=== PATIENT | female | born 1960 | race Caucasian/White ===

== ENCOUNTER 2017-04-02 19:26 | Inpatient (IN) | payer OTHER ==
[~2017-04-02] VITALS: Ht 157.5 cm; Wt 90.3 kg
[2017-04-02] MEDS ORDERED: ASPIRIN 81 MG TAB.CHEW ONE (19:31)
--- NOTE | 2017-04-02 19:36 | ED.ADGEN ---
Past History Past Medical History: Other Adult General Chief Complaint Chief Complaint " I ve been short of breath.. some chest pain.. I have DM.. I usually see Dr. Villalpando. " HPI HPI Patient is a 57 year old female who presents with above hx and complaints of dyspnea and Chest pain . Chest pain is central and pleuritic. . Hx. cough, and fever. Pt,. reports no specific ill contacts. No travel. No changes in meds. Pt. normally follows with Dr. Villalpando. Pt. does have hx of DM. No hx of tobacco use. No hx of cardiac disorders. Review of Systems Review of Systems Constitutional: Denies fever or chills [] Eyes: Denies change in visual acuity, redness, or eye pain [] HENT: Denies nasal congestion or sore throat [] Respiratory: Hx of cough and shortness of breath [] Cardiovascular: No additional information not addressed in HPI [] GI: Hx. of , nausea,. No vomiting, bloody stools or diarrhea [] : Denies dysuria or hematuria [] Musculoskeletal: Denies back pain or joint pain [] Integument: Denies rash or skin lesions [] Neurologic: Denies headache, focal weakness or sensory changes [] Endocrine: Denies polyuria or polydipsia [] All other systems were reviewed and found to be within normal limits, except as documented in this note. Family History Family History DM Current Medications Current Medications Current Medications Medications (Trade) Dose Ordered Sig/Anais Start Time Stop Time Status Last Admin Dose Admin Aspirin (Selene Aspirin) 325 mg 1X ONCE 04/02/17 20:45 04/02/17 20:46 AR Aspirin (Children'S Aspirin) 324 mg 1X ONCE 04/02/17 21:00 04/02/17 21:01 AR 04/02/17 19:30 324 MG Ceftriaxone Sodium 1 gm/ Sodium Chloride 50 ml @ 100 mls/hr 1X ONCE 04/02/17 21:00 04/02/17 21:29 DC 04/02/17 21:45 100 MLS/HR Enoxaparin Sodium (Lovenox 80mg Syringe) 80 mg 1X ONCE 04/02/17 21:00 04/02/17 21:01 DC 04/02/17 21:45 80 MG Info (Do NOT chart on this entry -- for MONITORING) 1 each PRN DAILY PRN 04/02/17 21:00 04/04/17 20:59 Iohexol (Omnipaque 300 Mg/ml) 75 ml 1X ONCE 04/02/17 21:30 04/02/17 21:31 DC 04/02/17 21:41 75 ML Sodium Chloride 1,000 ml @ 1,000 mls/hr Q1H 04/02/17 20:30 04/02/17 21:29 DC 04/02/17 20:36 1,000 MLS/HR Allergies Allergies Allergies Coded Allergies Type Severity Reaction Last Updated Verified No Known Drug Allergies 04/02/17 No Physical Exam Physical Exam Constitutional: Well developed, well nourished, mid to moderate distress, non- toxic appearance. [] HENT: Normocephalic, atraumatic, bilateral external ears normal, oropharynx moist, no oral exudates, nose normal. [] Eyes: PERRLA, EOMI, conjunctiva normal, no discharge. [] Neck: Normal range of motion, no tenderness, supple, no stridor. [] Cardiovascular:Tachycardia Heart rate regular rhythm, no murmur [] Lungs & Thorax: Bilateral breath sounds equal apex with scattered wheezes, some rhonchi Rt. lung ramirez on auscultation [] Abdomen: Bowel sounds normal, soft, no tenderness, no masses, no pulsatile masses. Obese. Skin: Warm, dry, no erythema, no rash. [] Back: No tenderness, no CVA tenderness. [] Extremities: No tenderness, no cyanosis, no clubbing, ROM intact, no edema. No cording. Neurologic: Alert and oriented X 3, normal motor function, normal sensory function, no focal deficits noted. [] Psychologic: Affect anxious, judgement normal, mood normal. [] Current Patient Data Lab Results Laboratory Tests Test 04/02/17 19:30 White Blood Count 7.8 x10^3/uL (4.0-11.0) Red Blood Count 4.93 x10^6/uL (3.50-5.40) Hemoglobin 14.4 g/dL (12.0-15.5) Hematocrit 41.5 % (36.0-47.0) Mean Corpuscular Volume 84 fL (79-100) Mean Corpuscular Hemoglobin 29 pg (25-35) Mean Corpuscular Hemoglobin Concent 35 g/dL (31-37) Red Cell Distribution Width 13.7 % (11.5-14.5) Platelet Count 247 x10^3/uL (140-400) Neutrophils (%) (Auto) 81 % (31-73) H Lymphocytes (%) (Auto) 12 % (24-48) L Monocytes (%) (Auto) 6 % (0-9) Eosinophils (%) (Auto) 0 % (0-3) Basophils (%) (Auto) 0 % (0-3) Neutrophils # (Auto) 6.3 x10^3uL (1.8-7.7) Lymphocytes # (Auto) 1.0 x10^3/uL (1.0-4.8) Monocytes # (Auto) 0.5 x10^3/uL (0.0-1.1) Eosinophils # (Auto) 0.0 x10^3/uL (0.0-0.7) Basophils # (Auto) 0.0 x10^3/uL (0.0-0.2) Prothrombin Time 11.2 SEC (9.4-11.4) Prothrombin Time INR 1.1 (0.9-1.1) PTT 28 SEC (23-33) D-Dimer (Anum) 1.30 mg/L (0.00-0.50) H Urine Collection Type Unknown Urine Color Straw Urine Clarity Clear Urine pH 5.0 Urine Specific [place] 1.025 Urine Protein 100 mg/dl (NEG-TRACE) Urine Glucose (UA) Neg mg/dL (NEG) Urine Ketones (Stick) Trace mg/dL (NEG) Urine Blood Mod (NEG) Urine Nitrite Neg (NEG) Urine Bilirubin Small (NEG) Urine Urobilinogen Dipstick 1 mg/dL (0.2 mg/dL) Urine Leukocyte Esterase Small (NEG) Urine RBC 1-2 /HPF (0-2) Urine WBC 1-4 /HPF (0-4) Urine Squamous Epithelial Cells Occ /LPF Urine Bacteria 0 /HPF (0-FEW) Sodium Level 135 mmol/L (136-145) L Potassium Level 3.7 mmol/L (3.5-5.1) Chloride Level 99 mmol/L (98-107) Carbon Dioxide Level 20 mmol/L (21-32) L Anion Gap 16 (6-14) H Blood Urea Nitrogen 19 mg/dL (7-20) Creatinine 1.0 mg/dL (0.6-1.0) Estimated GFR (Cockcroft-Gault) 57.6 BUN/Creatinine Ratio 19 (6-20) Glucose Level 196 mg/dL (70-99) H Calcium Level 8.4 mg/dL (8.5-10.1) L Magnesium Level 1.9 mg/dL (1.8-2.4) Total Bilirubin 0.7 mg/dL (0.2-1.0) Aspartate Amino Transferase (AST) 31 U/L (15-37) Alanine Aminotransferase (ALT) 31 U/L (14-59) Alkaline Phosphatase 89 U/L (46-116) Creatine Kinase 254 U/L (26-192) H Creatine Kinase MB (Mass) 1.3 ng/mL (0.0-3.6) Creatine Kinase MB Relative Index 0.5 % (0-4) Troponin I Quantitative < 0.017 ng/mL (0-0.055) GV-Man-K-Type Natriuretic Peptide 30 pg/mL (0-124) Total Protein 7.3 g/dL (6.4-8.2) Albumin 3.2 g/dL (3.4-5.0) L Albumin/Globulin Ratio 0.8 (1.0-1.7) L Lipase 93 U/L (73-393) Urine Opiates Screen Neg (NEG) Urine Methadone Screen Neg (NEG) Urine Barbiturates Neg (NEG) Urine Phencyclidine Screen Neg (NEG) Urine Amphetamine/Methamphetamine Neg (NEG) Urine Benzodiazepines Screen Neg (NEG) Urine Cocaine Screen Neg (NEG) Urine Cannabinoids Screen Neg (NEG) Urine Ethyl Alcohol Neg (NEG) EKG EKG My interpretation of EKG shows sinus 98, Lt. axis, non-specific anterolateral changes. [] Radiology/Procedures Radiology/Procedures My interpretation of CXR shows R. M. Lobe infiltrate, adenopathy. CT - Chest pending at time of admit. [] Course & Med Decision Making Course & Med Decision Making Pertinent Labs and Imaging studies reviewed. (See chart for details) Discussed presentation, testing and tx. plan with Dr. Villalpando. - Admit [] Final Impression Final Impression 1. Chest Pain[] 2. DM 3. Elevated D-dimer 4. Adenopathy 5. Dyspnea 6. Rt. Middle Lobe Infiltrate Problems: Dragon Disclaimer Dragon Disclaimer This electronic medical record was generated, in whole or in part, using a voice recognition dictation system. SURY BEDOLLA MD Apr 02, 2017 19:35
[2017-04-02 20:05] LABS: BASO % 0 % (0-3); EOS % 0 % (0-3); HEMATOCRIT 41.5 % (36.0-47.0); HEMOGLOBIN 14.4 g/dL (12.0-15.5); LYMPH % 12 % (24-48); MEAN CORPUSCULAR HEMOGLOBIN 29 pg (25-35); MEAN CORPUSCULAR HGB CONC 35 g/dL (31-37); MEAN CORPUSCULAR VOLUME 84 fL (79-100); MONO # 0.5 x10^3/uL (0.0-1.1); MONO % 6 % (0-9); NEUT # 6.3 x10^3uL (1.8-7.7); NEUT % 81 % (31-73); PLATELET COUNT 247 x10^3/uL (140-400); RED BLOOD COUNT 4.93 x10^6/uL (3.50-5.40); RED CELL DISTRIBUTION WIDTH 13.7 % (11.5-14.5); WHITE BLOOD COUNT 7.8 x10^3/uL (4.0-11.0)
--- NOTE | 2017-04-02 20:25 | RAD ---
EXAM: Chest, 2 views. HISTORY: Chest pain. Cough. COMPARISON: None. FINDINGS: Frontal and lateral views of the chest are obtained. There is patchy right perihilar and infrahilar infiltrate. There is no effusion or pneumothorax. The heart is normal in size. IMPRESSION: Multifocal right perihilar infiltrate. Follow-up to confirm resolution. Electronically signed by: Bridget Bee MD (04/02/2017 8:21 PM) [facility]
[2017-04-02 20:30] LABS: ALBUMIN 3.2 g/dL (3.4-5.0); ALBUMIN/GLOBULIN RATIO 0.8 (1.0-1.7); CALCIUM 8.4 mg/dL (8.5-10.1); GFR 57.6; MAGNESIUM 1.9 mg/dL (1.8-2.4); POTASSIUM 3.7 mmol/L (3.5-5.1); TOTAL BILIRUBIN 0.7 mg/dL (0.2-1.0); TOTAL PROTEIN 7.3 g/dL (6.4-8.2)
[2017-04-02] MEDS ORDERED: IV NORMAL SALINE 1,000ML 1,000 ML IV SCH (20:30)
[2017-04-02 20:35] LABS: BACTERIA,URINE 0 /HPF (0-FEW); BILIRUBIN,URINE SMALL (NEG); CLARITY,URINE CLEAR; COLOR,URINE STRAW; GLUCOSE,URINE NEG (NEG); NITRITE,URINE NEG (NEG); SQUAMOUS EPITHELIAL CELL,UR OCC /LPF; UROBILINOGEN,URINE 1 mg/dL (0.2 mg/dL)
[2017-04-02 20:36] LABS: BARBITURATES NEG (NEG); BENZODIAZEPINES NEG (NEG); CANNABINOIDS NEG (NEG); COCAINE NEG (NEG); METHADONE NEG (NEG); OPIATES NEG (NEG); PHENCYCLIDINE NEG (NEG)
[2017-04-02 20:37] LABS: AMPHETAMINE/METHAMPHETAMINE NEG (NEG)
[2017-04-02] MEDS ORDERED: ASPIRIN 325 MG TABLET PO ONE (20:45)
--- NOTE | 2017-04-02 20:48 | EKG ---
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
[2017-04-02] MEDS ORDERED: ASPIRIN 81 MG TAB.CHEW PO ONE (21:00)
[2017-04-02] MEDS ORDERED: CONTRAST GIVEN MC PRN (21:00)
[2017-04-02] MEDS ORDERED: ENOXAPARIN ** NOTE DOSE ** SYRINGE SQ ONE (21:00)
[2017-04-02] MEDS ORDERED: IV NORMAL SALINE 50ML 50 ML ONE (21:17)
[2017-04-02] MEDS ORDERED: cefTRIAXone SODIUM 1 GM VIAL IV ONE (21:17)
[2017-04-02] MEDS ORDERED: IOHEXOL 300 MG/ML 75 ML VIAL. IV ONE (21:30)
[2017-04-02 21:45] VITALS: BP 118/72
--- NOTE | 2017-04-02 22:01 | RAD ---
Chest CTA History: Elevated d-dimer, infiltrate Technique: After bolus of intravenous contrast, CT imaging was performed of the chest. Multiplanar reconstruction images to include MIP reconstruction images are submitted. Exposure: One or more of the following individualized dose reduction techniques were utilized for this examination: 1. Automated exposure control 2. Adjustment of the mA and/or kV according to patient size 3. Use of iterative reconstruction technique. Contrast: 75 cc Omnipaque 300 Comparison: None Findings: [ ] No pulmonary embolism is identified. There is prominent infiltrate right middle lobe, to lesser degree of the right lower lobe. There is no abnormal pericardial or pleural fluid or pneumothorax. Major airways are patent. There is borderline enlarged node anterior to the right mainstem bronchus at 1 cm short axis dimension, some other mediastinal and right hilar nodes present. Impression: 1. No pulmonary embolism is identified. 2. There is prominent infiltrate of the right middle lobe and to lesser degree of the right lower lobe for which follow-up after treatment is advised. There is borderline mediastinal lymphadenopathy. Electronically signed by: Manpreet Oconnell MD (04/02/2017 9:57 PM) [employer]
[2017-04-02] MEDS ORDERED: Influenza vaccine per PROTOCOL. MC PRN (23:15)
[2017-04-02] MEDS ORDERED: PNEUMOCOCCAL VAX SCREEN. MC PRN (23:15)
[2017-04-02] MEDS ORDERED: ANTI-COAG MONITOR BY PHARMACY. MC PRN (23:15)
[2017-04-02] MEDS ORDERED: PITA2TAB2 PO (23:26)
[2017-04-02] MEDS ORDERED: METF500T4 PO (23:26)
[2017-04-02] MEDS ORDERED: CYCL-331 PO (23:28)
[2017-04-02] MEDS ORDERED: AZITHROMYCIN 250 MG TABLET. PO ONE (23:30)
[2017-04-03] MEDS ORDERED: ACETAMINOPHEN 325 MG TABLET PO ONE (05:21)
[2017-04-03 05:25] VITALS: BP 113/68
[2017-04-03] MEDS ORDERED: ACETAMINOPHEN 500 MG TABLET PO PRN (05:30)
[2017-04-03] MEDS ORDERED: IPRATRPIUM/ALBUTEROL 0.5/2.5MG 3 ML NEBU. ONE ×2 (05:47→05:53)
[2017-04-03] MEDS: IPRATRPIUM/ALBUTEROL 0.5/2.5MG 3 ML NEBU. NEB SCH ×4 (05:49→21:49)
[2017-04-03] MEDS ORDERED: DEXTROSE 50% 25 GM / 50ML DISP.SYRIN. IV PRN (06:00)
[2017-04-03] MEDS: ENOXAPARIN ** NOTE DOSE ** SYRINGE SQ SCH ×2 (07:54→21:13)
[2017-04-03] MEDS ORDERED: AZITHROMYCIN 250 MG TABLET. PO SCH (09:00)
[2017-04-03] MEDS ORDERED: FLU VACC QS2017-18 (36MOS+)/PF 0.5 ML SYRINGE. VAX IM ONE (09:00)
[2017-04-03] MEDS ORDERED: PNEUMOC CONJ VACC 23-VALENT 0.5 ML VIAL. VAX IM ONE (09:00)
--- NOTE | 2017-04-03 09:54 | RAD ---
Bilateral lower extremity venous Doppler ultrasound exam HISTORY:Elevated d-dimer COMPARISON: None FINDINGS: Multiple grayscale and color images and spectral analysis waveform images were acquired of the bilateral lower extremity veins to evaluate for the presence of DVT. Normal compression, color-flow, and augmentation is demonstrated from the bilateral common femoral to the popliteal veins. There is normal phasicity. There is normal color flow of the proximal profunda femoris and greater saphenous veins. There is normal color flow in segments of calf veins. Impression: 1. There is no evidence of deep venous thrombosis from the bilateral common femoral to popliteal veins.
[2017-04-03 11:11] VITALS: BP 138/71
[2017-04-03 13:08] VITALS: BP 160/74
[2017-04-03] MEDS ORDERED: NITROGLYCERIN SUBLINGUAL 0.4 MG BOTTLE OF 25. SL PRN (13:30)
[2017-04-03] MEDS ORDERED: METOPROLOL SUCC 24HR ER 25 MG TAB.ER.24H. PO ONE (13:30)
--- NOTE | 2017-04-03 14:05 | HP ---
ADMIT DATE: 04/03/2017 HISTORY OF PRESENT ILLNESS: A 57-year-old female came in through the Emergency Room not feeling well for the last 3-4 days prior to admission. The patient has been having chest pain and sent from pleuritic cough, fever, chills. The patient has a history of diabetes. In any case, the patient was admitted to the hospital for further evaluation and treatment for her pneumonia that was demonstrated a first on chest x-ray and then on a CTA that demonstrated prominent infiltrate of the right middle lobe to a lesser degree of the right lower lobe, so she has bilobar pneumonia. The patient otherwise was admitted for that situation at hand. PAST MEDICAL HISTORY: Hypertension and back pain. She has had a history of anemia and arthritis. ALLERGIES: Possibly to METFORMIN. MEDICATIONS: Livalo 2 mg daily, metformin 850 mg b.i.d., which is contradictory to the metformin, which is was only there for side effects. FAMILY HISTORY: Father with Parkinson's. Mother with diabetes. Aunt with cancer. SOCIAL HISTORY: The patient is a nonsmoker, denies alcohol or drug use. 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 PHYSICAL EXAMINATION: GENERAL: A pleasant white female, moderate amount of distress. VITAL SIGNS: The patient's temperature was up to 99.9, pulse was n the 90s, blood pressure 138/70, respiratory rate 22. The patient is on 2 liters of nasal cannula. NEUROLOGIC: Alert and oriented x 3. Speech fluent, spontaneous, appropriate. Cranial nerves 2-12 grossly intact. Eyes were PERRLA. HEENT: Mouth and throat: Normal. Poor dentition. NECK: Supple, without JVD, carotid thyromegaly. LUNGS: Diminished throughout, poor movement of air. CARDIOVASCULAR: Regular sinus rhythm, S1, S2, without murmur, rub, thrill, or extra heart sound. ABDOMEN: Soft, nontender, no rebounding, no guarding. Positive bowel sounds, no hepatosplenomegaly was noted. EXTREMITIES: Without clubbing, cyanosis nor edema. NEUROLOGIC: The patient was alert and oriented x 3. IMPRESSION: Pneumonia, community acquired, bilobar pneumonia. PLAN: We will go ahead and continue to monitor the patient on IV antibiotic therapy. We will step up the dosing on the antibiotic since she did not respond well to the previous IV antibiotics. We will put her on cefepime and Levaquin and see if this does give the patient better relief as she is having still problems with breathing and not feeling very well and still running temperature. DAKSHA SIERRA MD DR: RADHA/jaimie JOB#: [id number] / [id number]
[2017-04-03] MEDS: CEFEPIME HCL 1 GM in IV NORMAL SALINE 50ML 50 ML IV SCH ×2 (14:22→21:14)
[2017-04-03] MEDS: ACETAMINOPHEN 500 MG TABLET PO PRN (15:11)
[2017-04-03] MEDS ORDERED: diphenhydrAMINE 50 MG/ML VIAL IVP ONE (15:15)
[2017-04-03] MEDS ORDERED: methylPREDNISolone SOD SUCC PF 125 MG/2 ML VIAL. IV ONE (15:15)
[2017-04-03 15:26] VITALS: BP 128/74
[2017-04-03 18:21] VITALS: BP 129/76
[2017-04-03] MEDS: diphenhydrAMINE 50 MG/ML VIAL IVP PRN (21:13)
[2017-04-03] MEDS: ZOLPIDEM 5 MG TABLET. PO PRN (21:21)
[2017-04-03 22:26] VITALS: BP 138/80
[2017-04-03] MEDS ORDERED: methylPREDNISolone SOD SUCC PF 40 MG/ML VIAL. IV ONE (23:00)
[2017-04-04] MEDS: CEFEPIME HCL 1 GM in IV NORMAL SALINE 50ML 50 ML IV SCH (05:07)
[2017-04-04 05:20] VITALS: BP 134/69
[2017-04-04] MEDS: IPRATRPIUM/ALBUTEROL 0.5/2.5MG 3 ML NEBU. NEB SCH ×4 (05:46→21:49)
[2017-04-04 06:35] LABS: BASO % 0 % (0-3); EOS % 0 % (0-3); HEMATOCRIT 37.9 % (36.0-47.0); HEMOGLOBIN 13.2 g/dL (12.0-15.5); LYMPH # 0.9 x10^3/uL (1.0-4.8); LYMPH % 15 % (24-48); MEAN CORPUSCULAR HEMOGLOBIN 29 pg (25-35); MEAN CORPUSCULAR HGB CONC 35 g/dL (31-37); MEAN CORPUSCULAR VOLUME 84 fL (79-100); MONO # 0.1 x10^3/uL (0.0-1.1); MONO % 2 % (0-9); NEUT # 4.6 x10^3uL (1.8-7.7); NEUT % 83 % (31-73); PLATELET COUNT 266 x10^3/uL (140-400); RED BLOOD COUNT 4.53 x10^6/uL (3.50-5.40); RED CELL DISTRIBUTION WIDTH 13.9 % (11.5-14.5); WHITE BLOOD COUNT 5.6 x10^3/uL (4.0-11.0)
[2017-04-04 06:43] LABS: CALCIUM 8.7 mg/dL (8.5-10.1); CREATININE 0.7 mg/dL (0.6-1.0); GFR 86.9; POTASSIUM 3.3 mmol/L (3.5-5.1)
[2017-04-04] MEDS: ATORVASTATIN CALCIUM 10 MG TABLET. PO SCH (08:47)
[2017-04-04] MEDS: ASPIRIN ENTERIC COATED 81 MG TABLET.DR. PO SCH (08:47)
[2017-04-04] MEDS: ENOXAPARIN ** NOTE DOSE ** SYRINGE SQ SCH (08:52)
[2017-04-04 10:51] VITALS: BP 170/68
[2017-04-04] MEDS ORDERED: DEXTROSE 50% 25 GM / 50ML DISP.SYRIN. IV PRN (11:45)
--- NOTE | 2017-04-04 12:25 | EKG ---
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
[2017-04-04] MEDS: INSULIN ASPART 300 UNITS/3 ML INSULN.PEN SQ SCH ×3 (12:32→21:16)
[2017-04-04] MEDS: CEFEPIME HCL 2 GM in IV NORMAL SALINE 100ML 100 ML IV SCH ×2 (14:13→21:10)
[2017-04-04 15:29] VITALS: BP 124/80
[2017-04-04 19:35] VITALS: BP 118/69
[2017-04-04] MEDS: diphenhydrAMINE 50 MG/ML VIAL IVP PRN (21:12)
[2017-04-04] MEDS: CYCLOBENZAPRINE 10 MG TABLET. PO PRN (21:12)
[2017-04-04] MEDS: ACETAMINOPHEN 500 MG TABLET PO PRN (21:12)
[2017-04-04] MEDS: ZOLPIDEM 5 MG TABLET. PO PRN (21:12)
[2017-04-04] MEDS: LACTOBACILLUS RHAMNOSUS GG 1 CAPSULE. PO SCH (21:13)
[2017-04-05] MEDS: CEFEPIME HCL 2 GM in IV NORMAL SALINE 100ML 100 ML IV SCH ×3 (04:40→21:05)
[2017-04-05 04:46] VITALS: BP 151/83
[2017-04-05] MEDS: IPRATRPIUM/ALBUTEROL 0.5/2.5MG 3 ML NEBU. NEB SCH ×4 (05:35→20:53)
[2017-04-05] MEDS: INSULIN ASPART 300 UNITS/3 ML INSULN.PEN SQ SCH ×4 (07:30→20:37)
[2017-04-05] MEDS: ASPIRIN ENTERIC COATED 81 MG TABLET.DR. PO SCH (07:50)
[2017-04-05] MEDS: metFORMIN 500 MG TABLET PO SCH ×2 (07:50→17:00)
[2017-04-05] MEDS: ATORVASTATIN CALCIUM 10 MG TABLET. PO SCH (07:50)
[2017-04-05] MEDS: LACTOBACILLUS RHAMNOSUS GG 1 CAPSULE. PO SCH ×2 (07:50→21:05)
[2017-04-05] MEDS: ENOXAPARIN 40 MG/0.4 ML DISP.SYRIN. SQ SCH (07:53)
[2017-04-05 11:00] VITALS: BP 129/70
--- NOTE | 2017-04-05 13:47 | RAD ---
Nuclear medicine lung scan Indication: Dyspnea for one week. Technique: Planar ventilation images are performed after inhalation of 24 mCi of xenon-133. Perfusion images are obtained after administration of 5.5 mCi of technetium 99m MAA in multiple projections. Comparison: CT angiogram from 04/02/2017 and same day chest x-ray Findings: The ventilation images demonstrate homogeneous uptake of the xenon-133 with complete washout on delayed images. The perfusion images demonstrate no abnormal wedge-shaped perfusion defects. There is a photopenic area seen on the RPO view that corresponds to pulmonary consolidation seen on the CT. Impression: Low probably VQ scan. Please note that previous CT angiogram from 04/02/2017 was negative for PE.
--- NOTE | 2017-04-05 14:07 | RAD ---
Chest, 2 views, 04/05/2017: History: Follow-up pneumonia Comparison is made to a study from 04/02/2017. The heart is within normal limits in size. There are right lung infiltrates involving primarily the right middle lobe. Similar findings were present on the previous study. The left lung is clear. There is no evidence of pleural fluid. Moderate spurring is present in the spine. IMPRESSION: Unchanged right pulmonary infiltrates again suggesting pneumonia.
--- NOTE | 2017-04-05 14:46 | PN ---
DATE: 04/03/2017 SUBJECTIVE: A 57-year-old female in with pneumonia, sepsis. The patient had a reaction to her Levaquin this morning and as a result of this had difficulty with severe rash the dose of Benadryl and Solu-Medrol, this took care of that. PHYSICAL EXAMINATION: VITAL SIGNS: Her blood pressure came down from 170 to 120/70, respiratory rate 20, pulse 88, afebrile. GENERAL: The patient is alert and oriented. LUNGS: Diminished throughout, but clearer than they have been. CARDIOVASCULAR: Regular sinus rhythm, S1, S2. ABDOMEN: Soft, nontender. LABORATORY DATA: Blood sugars are Solu-Medrol to the reaction to the Levaquin itself. Otherwise, labs are basically stable. She did have a positive blood culture, possible staph. The patient was placed on the cefepime and increased to 2 grams IV q. 8 since we had taken her off the Levaquin. She continues on her Lovenox and continues to be monitored carefully. We will continue to monitor, give her breathing treatments make further evaluation. IMPRESSION: Sepsis, pneumonia of unspecified etiology; allergic reaction to Levaquin. DAKSHA SIERRA MD DR: RADHA/jaimie JOB#: [id number] / [id number]
[2017-04-05 15:00] VITALS: BP 155/72
[2017-04-05 19:42] VITALS: BP 145/89
[2017-04-05] MEDS: CYCLOBENZAPRINE 10 MG TABLET. PO PRN (21:05)
[2017-04-05] MEDS: ZOLPIDEM 5 MG TABLET. PO PRN (21:06)
[2017-04-05 21:47] VITALS: BP 129/73
--- NOTE | 2017-04-06 00:33 | PN ---
DATE: SUBJECTIVE: This is a 57-year-old female in with pneumonia. She is doing a little better, but still very weak on her legs, having difficulty standing and walking. She will continue with PT, OT, and make further advances on that today. Should have repeat chest x-ray and monitor the progression of her pneumonia. OBJECTIVE: VITAL SIGNS: Otherwise, blood pressure 130/70, respirations 18, pulse 60, afebrile. Did run a little bit of a temperature last night, so we will continue on IV antibiotic therapy. LUNGS: Diminished throughout, but clearer than they have been. CARDIOVASCULAR: Regular sinus rhythm. ABDOMEN: Soft, nontender. EXTREMITIES: No clubbing, cyanosis, or edema. NEUROLOGICAL: The patient neurologically stable and feeling a little better, but still very weak. We will continue with IV antibiotic therapy and make further evaluation on her as indicated. IMPRESSION: Pneumonia of unspecified etiology, sepsis. ____ the patient will get a VQ scan today ____ positive D-dimer and will make further evaluation on her once that result is back. Otherwise, we will decrease her antibiotic to 1 gram 3 times a day. Get chest x-ray and make further evaluation on her as indicated per those results. DAKSHA SIERRA MD DR: RADHA/jaimie JOB#: [id number] / [id number]
[2017-04-06] MEDS: IPRATRPIUM/ALBUTEROL 0.5/2.5MG 3 ML NEBU. NEB SCH ×2 (05:30→09:19)
[2017-04-06] MEDS: CEFEPIME HCL 2 GM in IV NORMAL SALINE 100ML 100 ML IV SCH (05:45)
[2017-04-06 05:46] VITALS: BP 124/66
[2017-04-06 06:49] LABS: BASO % 0 % (0-3); EOS # 0.1 x10^3/uL (0.0-0.7); EOS % 2 % (0-3); HEMOGLOBIN 12.2 g/dL (12.0-15.5); LYMPH # 2.5 x10^3/uL (1.0-4.8); LYMPH % 36 % (24-48); MEAN CORPUSCULAR HEMOGLOBIN 29 pg (25-35); MEAN CORPUSCULAR HGB CONC 35 g/dL (31-37); MEAN CORPUSCULAR VOLUME 84 fL (79-100); MONO # 0.4 x10^3/uL (0.0-1.1); MONO % 5 % (0-9); NEUT # 3.9 x10^3uL (1.8-7.7); NEUT % 57 % (31-73); PLATELET COUNT 289 x10^3/uL (140-400); RED BLOOD COUNT 4.17 x10^6/uL (3.50-5.40); WHITE BLOOD COUNT 6.9 x10^3/uL (4.0-11.0)
[2017-04-06 06:58] LABS: CALCIUM 7.6 mg/dL (8.5-10.1); CREATININE 0.8 mg/dL (0.6-1.0); GFR 74.5; POTASSIUM 3.1 mmol/L (3.5-5.1)
[2017-04-06] MEDS: INSULIN ASPART 300 UNITS/3 ML INSULN.PEN SQ SCH ×2 (07:30→11:30)
[2017-04-06] MEDS: metFORMIN 500 MG TABLET PO SCH (08:28)
[2017-04-06] MEDS: ATORVASTATIN CALCIUM 10 MG TABLET. PO SCH (08:28)
[2017-04-06] MEDS: LACTOBACILLUS RHAMNOSUS GG 1 CAPSULE. PO SCH (08:28)
[2017-04-06] MEDS: ASPIRIN ENTERIC COATED 81 MG TABLET.DR. PO SCH (08:28)
[2017-04-06] MEDS: ENOXAPARIN 40 MG/0.4 ML DISP.SYRIN. SQ SCH (08:29)
[2017-04-06] MEDS ORDERED: IPRA3AMP NEB (10:37)
[2017-04-06] MEDS ORDERED: CEFU500T46 PO (10:37)
[2017-04-06 10:48] VITALS: BP 124/76
--- NOTE | 2017-04-06 20:57 | DS ---
DATE OF DISCHARGE: 04/06/2017 A 57-year-old female came in feeling weak and tired, running fever and chills for several days prior to admission. The patient apparently was a smoker and also has a history of diabetes. The patient came in and was found prominent infiltrate in the right middle lobe to a lesser degree to the right lower lobe. As a result of this, the patient was admitted to the hospital for further evaluation for IV antibiotic therapy, positive D-dimer. CTA demonstrated pneumonia, but no blood clots. She had a chest x-ray and lower extremities showed no evidence of situation there. The patient's pulmonary perfusion test was negative and chest x-ray last one did show some unchanged right pulmonary infiltrate, although clinically she does not have any signs of infection. She is perfectly afebrile. Her heart rate is in the 80s. Her oxygen saturation is at 94-95% just on room air, so we will continue on oral antibiotics as an outpatient. She was encouraged not to smoke. Decreased activity. Continue with her MRAD to make further evaluation on her as indicated. The patient's final blood cultures did show possible Staph epidermidis, which would have been a contaminate in her blood specimens, but she will be kept on Ceftin, but again this is no doubt probably a contaminate. She also had a bad reaction to Levaquin that needs to be put into her database as a reaction there. The patient's urine cultures were negative. See MRAD, decreased activity, regular diet, off of work for another 4-5 days. Continue on oral antibiotic therapy and return to clinic for followup as indicated. DAKSHA SIERRA MD DR: RADHA/jaimie JOB#: [id number] / [id number]
== END 2017-04-06 13:00 | disposition home or self-care (01) | DRG 871 ==
LOC: ER 19:26 → 1 SOUTH 21:00
PROVIDERS: ADMIT Family Medicine; ATTEND Family Medicine
DX: A41.9 Sepsis, unspecified organism (principal); J18.1 Lobar pneumonia, unspecified organism; E11.9 Type 2 diabetes mellitus without complications; I10 Essential (primary) hypertension; T37.8X5A Adverse effect of other specified systemic anti-infectives and antiparasitics, initial encounter; Z82.0 Family history of epilepsy and other diseases of the nervous system; Z83.3 Family history of diabetes mellitus; M19.90 Unspecified osteoarthritis, unspecified site; M54.9 Dorsalgia, unspecified; R59.9 Enlarged lymph nodes, unspecified; Z86.2 Personal history of diseases of the blood and blood-forming organs and certain disorders involving the immune mechanism
CPT/HCPCS: 36415; 71020; 71275; 78582; 80048; 80053; 80307; 81001; 82550; 82553; 82947; 83605; 83690; 83735; 83880; 84443; 84484; 85025; 85379; 85610; 85730; 87040; 87086; 87205; 90686; 90732; 93005; 93970; 94640; 96374; A9540; A9558; G0238; J0456; J0692; J0696; J1200; J1650; J1815; J1956; J2920; J2930; J7620; Q9967; G0479; J7030

== ENCOUNTER 2019-12-27 07:25 | Emergency (ER) | payer SELFPAY ==
[~2019-12-27] VITALS: Ht 157.5 cm; Wt 87.8 kg
[~2019-12-27 07:25] MED LIST: CEFU500T46 PO; CYCL-331 PO; IPRA3AMP29 NEB; METF500T16 PO; PITA2TAB2 PO
[2019-12-27 07:41] VITALS: BP 132/57
[2019-12-27] MEDS ORDERED: ORPH-16 PO (08:13)
[2019-12-27] MEDS ORDERED: NAPR-695 PO (08:13)
--- NOTE | 2019-12-27 08:13 | PHYS DOC ---
Past History Past Medical History: No Pertinent History Past Surgical History: No Surgical History Smoking: Non-smoker Alcohol Use: None Drug Use: None General Adult EDM: Chief Complaint: SHOUDLER HPI: HPI: 59-year-old female presents the emergency department for left shoulder pain that began last night at around midnight after pushing away her dog. She heard a "pop" in her left shoulder when she pushed her dog away. She states that from this point she has had excruciating pain which she ranks on a scale of 20/10 and the pain has not been relieved in any way. She has no previous shoulder injuries or shoulder surgeries to the shoulder. She did state that she had a doctor once tell her that she had "arthritis" in the left shoulder. Before this morning she had no previous restriction of motion or pain at baseline. She describes the pain as achy and occasionally sharp. She also has pain in her left elbow as well. She says the pain is most painful with palpation in her left deltoid area and at the left elbow. She states that the pain does occasionally radiate to her elbow from her shoulder. She has no loss of sensation and any part of her upper left extremity. She denies numbing or tingling of her left upper extremity. She has not taken any pain medications for pain relief. She was brought to the emergency department by her fianc. She denies any previous recent COVID-19 contacts. Review of Systems: Review of Systems: Constitutional: Denies fever or chills Eyes: Denies redness or eye pain HENT: Denies nasal congestion or sore throat Respiratory: Denies cough or shortness of breath Cardiovascular: Denies chest pain or palpitations GI: Denies abdominal pain, nausea, or vomiting : Denies dysuria or hematuria Musculoskeletal: Denies back pain; reports left shoulder and elbow pain Integument: Denies rash or skin lesions Neurologic: Denies headache, focal weakness or sensory changes Complete systems were reviewed and found to be within normal limits, except as documented in this note. Allergies: Allergies: Allergies Coded Allergies Type Severity Reaction Last Updated Verified NKMA Allergy Unknown 04/11/17 Yes tomato Allergy Unknown 12/27/19 Yes levofloxacin Adverse Reaction Mild Itching, flushed & hot 04/11/17 Yes Physical Exam: PE: Constitutional: Well developed, well nourished, no acute distress, non-toxic appearance HENT: Normocephalic, atraumatic Eyes: PERRL, EOMI, conjunctiva normal, no discharge Neck: Normal range of motion, no tenderness, supple Lungs & Thorax: Equal rise and fall of chest bilaterally, no acute respiratory distress Skin: Warm, dry, no erythema, no rash Extremities: Pain in left upper extremity, restricted range of motion in left upper extremity, no edema noted or erythema Neurologic: Alert and oriented X 3, normal motor function, normal sensory function, no focal deficits noted Psychologic: Affect normal, judgment normal Current Patient Data: Vital Signs: Vital Signs Date Time Temp Pulse Resp B/P (MAP) Pulse Ox O2 Delivery O2 Flow Rate FiO2 12/27/19 07:41 98.0 66 18 132/57 (82) 96 Room Air Radiology/Procedures: Radiology/Procedures: PROCEDURE: SHOULDER 2+V LEFT Left shoulder 3 views. HISTORY: Left shoulder pain 3 views were taken of the left shoulder. There is not evidence of a fracture or dislocation or acute osseous abnormality. IMPRESSION: 1. No fracture or dislocation or acute osseous abnormality in the left shoulder. Electronically signed by: Cody Bailey MD (12/27/2019 8:08 AM) [id number] Course & Med Decision Making: Course & Med Decision Making 59-year-old female presented with left shoulder pain. Upon presentation patient was in pain and had restricted range of motion of her left upper extremity at the shoulder and elbow. We performed x-ray imaging which came back as negative for any fractures or significant abnormalities. Prior to coming to the emergency department the patient had not received any pain medication so at this time we gave her analgesics for her pain. We educated the patient in correct p ain management and RICE protocol. We also educated patient on exercises to reduce the probability of getting a frozen shoulder. We also gave patient a sling to help alleviate pain of the left upper extremity and educated her on proper use. Patient stable for discharge with outpatient follow-up with PCP/Orthopedics. Orthopedic referral provided. Discussed findings and plan with patient, who acknowledges understanding and agreement. Dorita Disclaimer: Dorita Disclaimer: This electronic medical record was generated, in whole or in part, using a voice recognition dictation system. Splinting Splinting : Location: Left shoulder Pre-Made Type: Shoulder sling Pre-Proc Neuro Vasc Exam: normal Post-Proc Neuro Vasc Exam: normal, unchanged from pre-exam Departure Departure: Impression: Primary Impression: Left shoulder strain Qualified Codes: S46.912A - Strain of unspecified muscle, fascia and tendon at shoulder and upper arm level, left arm, initial encounter Disposition: 01 HOME/RESIDENCE PRIOR TO ADM Condition: STABLE Referrals: PCPNISH (PCP) RADHA BOWEN MD Patient Instructions: Shoulder Pain, [id number], Shoulder Sprain Scripts Orphenadrine Citrate (ORPHENADRINE CITRATE) 100 Mg Tablet.er 1 TAB PO BID PRN for MUSCLE PAIN, #14 TAB 0 Refills Prov: ADA VILLAREAL DO 12/27/19 Naproxen (NAPROXEN) 375 Mg Tablet 1 TAB PO TID PRN PRN for PAIN, #30 TAB 0 Refills with food Prov: ADA VILLAREAL DO 12/27/19 Justification of Admission: Justification of Admission: Justification of Admission Dx: N/A ADA VILLAREAL DO Dec 27, 2019 08:13
[2019-12-27] MEDS ORDERED: NAPROXEN 500 MG TABLET PO ONE (08:30)
[2019-12-27] MEDS ORDERED: ORPHENADRINE CITRATE 60 MG/2 ML VIAL. IM ONE (08:30)
== END 2019-12-27 08:31 | disposition home or self-care (01) ==
LOC: ER 07:25
DX: S46.912A Strain of unspecified muscle, fascia and tendon at shoulder and upper arm level, left arm, initial encounter (principal); X50.9XXA Other and unspecified overexertion or strenuous movements or postures, initial encounter; Y93.89 Activity, other specified; Y92.89 Other specified places as the place of occurrence of the external cause; Y99.8 Other external cause status
CPT/HCPCS: 73030; 96372; 99283; J2360

== ENCOUNTER 2020-04-07 10:56 | Emergency (ER) | payer SELFPAY ==
[~2020-04-07] VITALS: Ht 157.5 cm; Wt 88.7 kg
[~2020-04-07 10:56] MED LIST changes: +NAPR-695 PO; +ORPH-16 PO
--- NOTE | 2020-04-07 11:16 | PHYS DOC ---
Past History Past Medical History: No Pertinent History Past Surgical History: No Surgical History Smoking: Non-smoker Alcohol Use: None Drug Use: None Adult General HPI HPI Patient is a 60yo presenting for abdominal pain. Onset was this morning without known inciting event or trauma. Nothing known makes better, urination and PO intake seem to make worse. Pain is diffuse and sharp in "different areas" of abdomen without radiation. Timing of symptoms waxes and wanes since onset. She has no prior abdominal surgeries. No fever or COVID 19 contacts Review of Systems Review of Systems Fourteen body systems of review of systems have been reviewed. See HPI for pertinent positives and negative responses, other cleary all other systems are negative, non-pertinent or non-contributory Allergies Allergies Allergies Coded Allergies Type Severity Reaction Last Updated Verified NKMA Allergy Unknown 04/11/17 Yes tomato Allergy Unknown 12/27/19 Yes levofloxacin Adverse Reaction Mild Itching, flushed & hot 04/11/17 Yes Physical Exam Physical Exam Constitutional: Well developed, well nourished, no acute distress, non-toxic appearance. HENT: Normocephalic, atraumatic, bilateral external ears normal, oropharynx moist, no oral exudates, nose normal. Eyes: PERRLA, EOMI, conjunctiva normal, no discharge. Neck: Normal range of motion, no tenderness, supple, no stridor. Cardiovascular: Heart rate regular, sinus rhythm, no murmurs rubs or gallops Lungs & Thorax: Bilateral breath sounds clear to auscultation Abdomen: Bowel sounds normal, soft, mild LLQ tenderness without guarding or rebound, no masses, no pulsatile masses. Nonsurgical abdomen, no peritoneal signs Skin: Warm, dry, no erythema, no rash. Back: No tenderness, no CVA tenderness. Extremities: No tenderness, no cyanosis, no clubbing, ROM intact, no edema. Neurologic: Alert and oriented X 3, grossly normal motor & sensory function, no focal deficits noted. Psychologic: Affect normal, judgement normal, anxious mood Current Patient Data Vital Signs Vital Signs Date Time Temp Pulse Resp B/P (MAP) Pulse Ox O2 Delivery O2 Flow Rate FiO2 04/07/20 12:47 65 18 115/70 (85) 96 04/07/20 12:14 Room Air 04/07/20 11:19 97.7 Lab Results Laboratory Tests Test 04/07/20 11:59 04/07/20 12:46 White Blood Count 5.7 x10^3/uL (4.0-11.0) Red Blood Count 5.09 x10^6/uL (3.50-5.40) Hemoglobin 15.0 g/dL (12.0-15.5) Hematocrit 44.3 % (36.0-47.0) Mean Corpuscular Volume 87 fL (79-100) Mean Corpuscular Hemoglobin 30 pg (25-35) Mean Corpuscular Hemoglobin Concent 34 g/dL (31-37) Red Cell Distribution Width 12.8 % (11.5-14.5) Platelet Count 266 x10^3/uL (140-400) Neutrophils (%) (Auto) 54 % (31-73) Lymphocytes (%) (Auto) 38 % (24-48) Monocytes (%) (Auto) 6 % (0-9) Eosinophils (%) (Auto) 1 % (0-3) Basophils (%) (Auto) 0 % (0-3) Neutrophils # (Auto) 3.1 x10^3uL (1.8-7.7) Lymphocytes # (Auto) 2.2 x10^3/uL (1.0-4.8) Monocytes # (Auto) 0.3 x10^3/uL (0.0-1.1) Eosinophils # (Auto) 0.1 x10^3/uL (0.0-0.7) Basophils # (Auto) 0.0 x10^3/uL (0.0-0.2) Sodium Level 139 mmol/L (136-145) Potassium Level 3.7 mmol/L (3.5-5.1) Chloride Level 105 mmol/L (98-107) Carbon Dioxide Level 25 mmol/L (21-32) Anion Gap 9 (6-14) Blood Urea Nitrogen 22 mg/dL (7-20) Creatinine 1.0 mg/dL (0.6-1.0) Estimated GFR (Cockcroft-Gault) 56.9 BUN/Creatinine Ratio 22 (6-20) Glucose Level 141 mg/dL (70-99) Calcium Level 9.1 mg/dL (8.5-10.1) Total Bilirubin 0.3 mg/dL (0.2-1.0) Aspartate Amino Transf (AST/SGOT) 20 U/L (15-37) Alanine Aminotransferase (ALT/SGPT) 30 U/L (14-59) Alkaline Phosphatase 61 U/L (46-116) Total Protein 7.2 g/dL (6.4-8.2) Albumin 3.8 g/dL (3.4-5.0) Albumin/Globulin Ratio 1.1 (1.0-1.7) Urine Collection Type Unknown Urine Color Yellow Urine Clarity Clear Urine pH 5.5 Urine Specific [place] 1.020 Urine Protein Neg (NEG-TRACE) Urine Glucose (UA) Neg mg/dL (NEG) Urine Ketones (Stick) Neg mg/dL (NEG) Urine Blood Neg (NEG) Urine Nitrite Neg (NEG) Urine Bilirubin Neg (NEG) Urine Urobilinogen Dipstick 0.2 mg/dL (0.2 mg/dL) Urine Leukocyte Esterase Neg (NEG) Urine RBC Rare /HPF (0-2) Urine WBC 1-4 /HPF (0-4) Urine Squamous Epithelial Cells Mod /LPF Urine Transitional Epithelial Cells Occ /LPF Urine Bacteria Few /HPF (0-FEW) Urine Mucus Slight /LPF EKG EKG [] Radiology/Procedures Radiology/Procedures PROCEDURE: CT ABDOMEN PELVIS WO CONTRAST CT scan of the abdomen and pelvis without contrast 04/07/2020 CLINICAL HISTORY: Right flank pain. History of kidney stones. TECHNIQUE: Unenhanced, contiguous, 3 mm axial sections were obtained through abdomen and pelvis. One or more of the following individualized dose reduction techniques were utilized for this study: 1. Automated exposure control. 2. Adjustment of the mA and/or kV according to patient size. 3. Use of iterative reconstruction technique. FINDINGS: Comparison study is dated 07/01/2012. Images through the lung bases demonstrate minimal dependent subsegmental atelectasis bilaterally. The liver, spleen, pancreas, and adrenal glands are within normal limits. A 3 mm nonobstructing calculus is seen involving the midpole of the left kidney. No focal abnormality of the right kidney is seen. No ureteral calculus is seen. There is no evidence of obstruction of either collecting system. Atherosclerotic calcification abdominal aorta is seen. The abdominal aorta tapers normally. The gallbladder is contracted. No free fluid or free air is seen within the abdomen. There is no evidence of bowel obstruction. Air and stool are seen throughout the colon. The appendix is well-visualized and is within normal limits. Images through the pelvis demonstrate the urinary bladder distended with urine. Calcifications are seen within the pelvis consistent with phleboliths. No adnexal mass is seen. No free fluid is noted. Very mild S-shaped curvature of the thoracolumbar spine is seen. Degenerative changes are seen involving lower thoracic and throughout the lumbar spine along with both hips. The distal right ureteral calculus seen on the previous examination has resolved. IMPRESSION: 3 mm nonobstructing left renal calculus. No ureteral calculus is seen. There is no evidence of obstruction of either collecting system. No acute abnormality is noted. Electronically signed by: Reji Gonzales MD (04/07/2020 12:24 PM) [id number] Heart Score HEART Score for Chest Pain: HEART Score for Chest Pain Response (Comments) Value History Slighlty/Non-Suspicious 0 Age >45 - < 65 1 Risk Factors 1 or 2 Risk Factors 1 Total 2 Risk Factors: Risk Factors: DM, Current or recent (<one month) smoker, HTN, HLP, family history of CAD, obesity. Risk Scores: Risk Factors: DM, Current or recent (<one month) smoker, HTN, HLP, family history of CAD, obesity. Course & Med Decision Making Course & Med Decision Making Presentation most consistent with pain from non-infected Kidney Stone. Given History and Exam I have lower suspicion for atypical appendicitis, genital torsion, acute cholecystitis, AAA, Aortic Dissection, Serious Bacterial Illness or other emergent intraabdominal pathology. Patient tolerating PO and pain controlled Disposition: Discharge. Strict return precautions for infected stone or PO intolerance discussed. Dragon Disclaimer Dragon Disclaimer This electronic medical record was generated, in whole or in part, using a voice recognition dictation system. Departure Departure: Impression: Primary Impression: Left nephrolithiasis Disposition: 01 DC HOME SELF CARE/HOMELESS Condition: STABLE Referrals: PCP,NO (PCP) Patient Instructions: Diet for Kidney Stones, Kidney Stones Additional Instructions: As discussed prior to ER departure please use attached sheet to call and establish care with local primary care physician for follow-up in outpatient setting. You were diagnosed with a left-sided 3 mm kidney stone that should pass with medical treatment provided. Please use prescribed Flomax daily until passage of stone. Please utilize NSAIDs and/or Tylenol for pain as needed If any concerning signs or symptoms as discussed prior to departure such as fever present prior to outpatient follow-up please do not hesitate to come back for repeat evaluation It was a pleasure to take care of you today and I wish you a speedy recovery! Scripts Tamsulosin Hcl (FLOMAX) 0.4 Mg Cap.er.24h 1 CAP PO DAILY for kidney stone, #30 CAP 11 Refills Prov: ANGELA PATRICIA DO 04/07/20 ANGELA PATRICIA DO Apr 07, 2020 11:16
[2020-04-07] MEDS ORDERED: KETOROLAC 15 MG/ML VIAL. ONE (11:59)
[2020-04-07] MEDS ORDERED: IV NORMAL SALINE 1,000ML 1,000 ML IV ONE (12:00)
[2020-04-07] MEDS ORDERED: KETOROLAC 15 MG/ML VIAL. IVP ONE (12:00)
[2020-04-07 12:13] LABS: BASO % 0 % (0-3); EOS # 0.1 x10^3/uL (0.0-0.7); EOS % 1 % (0-3); HEMATOCRIT 44.3 % (36.0-47.0); LYMPH # 2.2 x10^3/uL (1.0-4.8); LYMPH % 38 % (24-48); MEAN CORPUSCULAR HEMOGLOBIN 30 pg (25-35); MEAN CORPUSCULAR HGB CONC 34 g/dL (31-37); MEAN CORPUSCULAR VOLUME 87 fL (79-100); MONO # 0.3 x10^3/uL (0.0-1.1); MONO % 6 % (0-9); NEUT # 3.1 x10^3uL (1.8-7.7); NEUT % 54 % (31-73); PLATELET COUNT 266 x10^3/uL (140-400); RED BLOOD COUNT 5.09 x10^6/uL (3.50-5.40); RED CELL DISTRIBUTION WIDTH 12.8 % (11.5-14.5); WHITE BLOOD COUNT 5.7 x10^3/uL (4.0-11.0)
--- NOTE | 2020-04-07 12:27 | RAD ---
CT scan of the abdomen and pelvis without contrast 04/07/2020 CLINICAL HISTORY: Right flank pain. History of kidney stones. TECHNIQUE: Unenhanced, contiguous, 3 mm axial sections were obtained through abdomen and pelvis. One or more of the following individualized dose reduction techniques were utilized for this study: 1. Automated exposure control. 2. Adjustment of the mA and/or kV according to patient size. 3. Use of iterative reconstruction technique. FINDINGS: Comparison study is dated 07/01/2012. Images through the lung bases demonstrate minimal dependent subsegmental atelectasis bilaterally. The liver, spleen, pancreas, and adrenal glands are within normal limits. A 3 mm nonobstructing calculus is seen involving the midpole of the left kidney. No focal abnormality of the right kidney is seen. No ureteral calculus is seen. There is no evidence of obstruction of either collecting system. Atherosclerotic calcification abdominal aorta is seen. The abdominal aorta tapers normally. The gallbladder is contracted. No free fluid or free air is seen within the abdomen. There is no evidence of bowel obstruction. Air and stool are seen throughout the colon. The appendix is well-visualized and is within normal limits. Images through the pelvis demonstrate the urinary bladder distended with urine. Calcifications are seen within the pelvis consistent with phleboliths. No adnexal mass is seen. No free fluid is noted. Very mild S-shaped curvature of the thoracolumbar spine is seen. Degenerative changes are seen involving lower thoracic and throughout the lumbar spine along with both hips. The distal right ureteral calculus seen on the previous examination has resolved. IMPRESSION: 3 mm nonobstructing left renal calculus. No ureteral calculus is seen. There is no evidence of obstruction of either collecting system. No acute abnormality is noted. Electronically signed by: Reji Gonzales MD (04/07/2020 12:24 PM) [id number]
[2020-04-07 12:37] LABS: CALCIUM 9.1 mg/dL (8.5-10.1); GFR 56.9; POTASSIUM 3.7 mmol/L (3.5-5.1)
[2020-04-07 12:43] LABS: ALBUMIN 3.8 g/dL (3.4-5.0); ALBUMIN/GLOBULIN RATIO 1.1 (1.0-1.7); TOTAL BILIRUBIN 0.3 mg/dL (0.2-1.0); TOTAL PROTEIN 7.2 g/dL (6.4-8.2)
[2020-04-07 12:47] VITALS: BP 115/70
[2020-04-07] MEDS ORDERED: TAMSULOSIN 0.4 MG CAP.ER.24H. PO ONE (13:15)
[2020-04-07] MEDS ORDERED: TAMS0.4C97 PO (13:16)
[2020-04-07 13:40] LABS: BACTERIA,URINE FEW /HPF (0-FEW); BILIRUBIN,URINE NEG (NEG); CLARITY,URINE CLEAR; COLOR,URINE YELLOW; GLUCOSE,URINE NEG (NEG); NITRITE,URINE NEG (NEG); RBC,URINE RARE /HPF (0-2); SQUAMOUS EPITHELIAL CELL,UR MOD /LPF; UROBILINOGEN,URINE 0.2 mg/dL (0.2 mg/dL)
== END 2020-04-07 13:39 | disposition home or self-care (01) ==
LOC: ER 10:56
DX: N20.0 Calculus of kidney (principal); R10.9 Unspecified abdominal pain; Z88.1 Allergy status to other antibiotic agents; Z91.018 Allergy to other foods; Z88.8 Allergy status to other drugs, medicaments and biological substances
CPT/HCPCS: 36415; 74176; 80053; 81001; 85025; 96361; 96374; 99284; J1885; J7030

== ENCOUNTER 2020-07-09 08:13 | Emergency (ER) | payer OTHER ==
[~2020-07-09] VITALS: Ht 157.5 cm; Wt 85.0 kg
[~2020-07-09 08:13] MED LIST changes: +TAMS0.4C97 PO
--- NOTE | 2020-07-09 08:59 | PHYS DOC ---
Past History Past Medical History: UTI Past Surgical History: , Other Additional Past Surgical Histo: DENTAL Smoking: Non-smoker Alcohol Use: Occasionally Drug Use: None General Adult EDM: Chief Complaint: ABDOMINAL PAIN HPI: HPI: Patient is a 60-year-old female coming in for few days of low abdominal pain. Patient states she saw her primary care provider yesterday and had a UA done and was told she had a urinary tract infection. Was started on Macrobid but says pain is getting worse. Pain is worse with standing up and movement. Not changed by p.o. intake. Last p.o. intake was this morning. Patient is has some nausea but no vomiting. Denies any changes in bowel movements, last bowel movement this morning and did not change pain. Patient is complaining of some dysuria. But denies any fevers, cough. No history of any abdominal surgeries or bowel obstructions. Review of Systems: Review of Systems: All other systems within normal limits except for as noted in the HPI Allergies: Allergies: Allergies Coded Allergies Type Severity Reaction Last Updated Verified tomato Allergy Unknown 04/07/20 Yes levofloxacin Adverse Reaction Mild Itching, flushed & hot 04/07/20 Yes Physical Exam: PE: Constitutional: Well developed, well nourished, no acute distress, non-toxic appearance. [] HENT: Normocephalic, atraumatic, bilateral external ears normal, nose normal. [] Eyes: PERRLA, conjunctiva normal, no discharge. [] Neck: No rigidity, supple, no stridor. [] Cardiovascular: Regular rate and rhythm, brisk cap refill [] Lungs & Thorax: Non labored symmetric respirations, no tachypnea or respiratory distress [] Abdomen: Soft, nondistended, tenderness on left upper and left lower quadrants. No guarding or rebound. No McBurney's point tenderness, negative Allen sign.. Skin: Warm, dry, no erythema, no rash. [] Back: Unremarkable, no CVA tenderness Extremities: No deformities, range of motion grossly intact, no lower extremity edema [] Neurologic: Alert and oriented X 3, no focal deficits noted. [] Psychologic: Affect normal, judgement normal, mood normal. [] Current Patient Data: Vital Signs: Vital Signs Date Time Temp Pulse Resp B/P (MAP) Pulse Ox O2 Delivery O2 Flow Rate FiO2 3/3/21 08:21 96.9 80 18 155/83 (107) 96 Room Air EKG: EKG: [] Radiology/Procedures: Radiology/Procedures: Exam Date: 07/09/2020 10:[address] ABDOMEN+PELVIS W Indication: Reason: left abd pain / Spl. Instructions: / History: TECHNIQUE: CT examination of the abdomen and pelvis was performed following the administration of oral and nonionic intravenous contrast. One or more of the following dose reduction techniques were utilized: *Automated exposure control (AEC) *Adjustment of mA and/or kV according to patient size *Use of iterative reconstruction technique *CT scan done according to ALARA, or ALARA/IMAGE GENTLY FINDINGS: The visualized lung bases are clear. There is a diverticulum arising from the third portion of the duodenum. The liver, gallbladder, spleen, pancreas, adrenal glands and kidneys are normal. Urinary bladder is normal in appearance. Scattered colonic diverticula are seen without bowel obstruction or inflammation. The appendix is normal. Mild atherosclerotic calcifications are seen. No lymphadenopathy or ascites is seen. Degenerative changes are seen in the spine. IMPRESSION: No evidence of acute intra-abdominal pathology. [] Heart Score: Risk Factors: Risk Factors: DM, Current or recent (<one month) smoker, HTN, HLP, family history of CAD, obesity. Risk Scores: Score 0 - 3: 2.5% MACE over next 6 weeks - Discharge Home Score 4 - 6: 20.3% MACE over next 6 weeks - Admit for Clinical Observation Score 7 - 10: 72.7% MACE over next 6 weeks - Early Invasive Strategies Course & Med Decision Making: Course & Med Decision Making Pertinent Labs and Imaging studies reviewed. (See chart for details) Work-up unremarkable with benign exam. Discussed with patient that pain could be musculoskeletal or due to urinary tract infection but antibiotics can take time to work. We will add on Pyridium for symptom relief [] Dragon Disclaimer: Dragon Disclaimer: This electronic medical record was generated, in whole or in part, using a voice recognition dictation system. Departure Departure: Impression: Primary Impression: UTI (urinary tract infection) Disposition: 01 DC HOME SELF CARE/HOMELESS Condition: STABLE Referrals: ADAM WELLS (PCP) Patient Instructions: Urinary Tract Infection Scripts Phenazopyridine Hcl (PYRIDIUM) 200 Mg Tablet 1 TAB PO TID for urinary discomfort for 3 Days, #9 TAB 0 Refills Prov: TEJAS CHI MD 07/09/20 TEJAS CHI MD Jul 09, 2020 08:59
[2020-07-09] MEDS ORDERED: ONDANSETRON PF 4 MG/2 ML VIAL. IVP ONE (09:00)
[2020-07-09] MEDS ORDERED: IV NORMAL SALINE 500ML 500 ML IV ONE (09:00)
[2020-07-09] MEDS ORDERED: IOHEXOL 300 MG/ML 75 ML VIAL. IV ONE (09:15)
[2020-07-09 09:36] LABS: BASO % 1 % (0-3); EOS # 0.1 x10^3/uL (0.0-0.7); EOS % 1 % (0-3); HEMOGLOBIN 14.9 g/dL (12.0-15.5); LYMPH # 1.5 x10^3/uL (1.0-4.8); LYMPH % 30 % (24-48); MEAN CORPUSCULAR HEMOGLOBIN 29 pg (25-35); MEAN CORPUSCULAR HGB CONC 34 g/dL (31-37); MEAN CORPUSCULAR VOLUME 86 fL (79-100); MONO # 0.3 x10^3/uL (0.0-1.1); MONO % 6 % (0-9); NEUT # 3.2 x10^3uL (1.8-7.7); NEUT % 62 % (31-73); PLATELET COUNT 247 x10^3/uL (140-400); RED CELL DISTRIBUTION WIDTH 12.9 % (11.5-14.5); WHITE BLOOD COUNT 5.1 x10^3/uL (4.0-11.0)
[2020-07-09 09:38] LABS: CALCIUM 9.6 mg/dL (8.5-10.1); GFR 56.9
[2020-07-09 09:44] LABS: ALBUMIN 3.9 g/dL (3.4-5.0); ALBUMIN/GLOBULIN RATIO 1.1 (1.0-1.7); TOTAL BILIRUBIN 0.6 mg/dL (0.2-1.0); TOTAL PROTEIN 7.3 g/dL (6.4-8.2)
[2020-07-09 09:45] LABS: POTASSIUM 4.9 mmol/L (3.5-5.1)
[2020-07-09 09:56] LABS: CLARITY,URINE HAZY; COLOR,URINE YELLOW
[2020-07-09 09:57] LABS: BACTERIA,URINE 0 /HPF (0-FEW); BILIRUBIN,URINE NEG (NEG); GLUCOSE,URINE NEG (NEG); NITRITE,URINE NEG (NEG); SQUAMOUS EPITHELIAL CELL,UR MANY /LPF; UROBILINOGEN,URINE 0.2 mg/dL (0.2 mg/dL)
--- NOTE | 2020-07-09 10:22 | RAD ---
Exam Date: 07/09/2020 10:[address] ABDOMEN+PELVIS W Indication: Reason: left abd pain / Spl. Instructions: / History: TECHNIQUE: CT examination of the abdomen and pelvis was performed following the administration of or al and nonionic intravenous contrast. One or more of the following dose reduction techniques were ut ilized: *Automated exposure control (AEC) *Adjustment of mA and/or kV according to patient size *Use of iterative reconstruction technique *CT scan done according to ALARA, or ALARA/IMAGE GENTLY FINDINGS: The visualized lung bases are clear. There is a diverticulum arising from the third portion of the duodenum. The liver, gallbladder, spleen, pancreas, adrenal glands and kidneys are normal. Urinary bladder is normal in appearance. Scattered colonic diverticula are seen without bowel obstruction or inflammation. The appendix is no rmal. Mild atherosclerotic calcifications are seen. No lymphadenopathy or ascites is seen. Degenerative changes are seen in the spine. IMPRESSION: No evidence of acute intra-abdominal pathology. Electronically signed by: Devon Jean-Baptiste MD (07/09/2020 10:19 AM) [id number]
[2020-07-09 11:00] VITALS: BP 156/80
[2020-07-09] MEDS ORDERED: PHEN-318 PO (11:03)
== END 2020-07-09 11:16 | disposition home or self-care (01) ==
LOC: ER 08:13
DX: N39.0 Urinary tract infection, site not specified (principal); R10.32 Left lower quadrant pain; R10.12 Left upper quadrant pain; R11.0 Nausea; Z98.890 Other specified postprocedural states; Z91.018 Allergy to other foods; Z88.1 Allergy status to other antibiotic agents
CPT/HCPCS: 36415; 74177; 80053; 81001; 83690; 84484; 85025; 87086; 96361; 96374; 99285; J2405; J7040; Q9967

== ENCOUNTER 2020-11-10 23:13 | Emergency (ER) | payer OTHER ==
[~2020-11-10] VITALS: Ht 157.5 cm; Wt 86.0 kg
[~2020-11-10 23:13] MED LIST changes: +PHEN-318 PO
[2020-11-10 23:15] VITALS: BP 155/88
--- NOTE | 2020-11-10 23:35 | PHYS DOC ---
Past History Past Medical History: UTI Past Surgical History: , Other Additional Past Surgical Histo: DENTAL Smoking: Non-smoker Alcohol Use: Occasionally Drug Use: None Adult General HPI HPI Patient is a 52-year-old female who presents with left knee pain, for the last 2 weeks, intermittent, 6 out of 10, dull and achy in nature after bumping it on a table 2 weeks ago. States she went to her primary care physician who pushed on her knee but did get an x-ray. States he has been taking some Tylenol at home with only minimal relief. States that she is able to sit, stand and walk without issue but does cause discomfort. Denies any other traumas, illnesses, fevers, chest pain, shortness of breath, abdominal pain, nausea, vomiting. Review of Systems Review of Systems Review of systems otherwise unremarkable except noted in HPI Allergies Allergies Allergies Coded Allergies Type Severity Reaction Last Updated Verified tomato Allergy Unknown 04/07/20 Yes levofloxacin Adverse Reaction Mild Itching, flushed & hot 04/07/20 Yes Physical Exam Physical Exam Constitutional: Well developed, well nourished, no acute distress, non-toxic appearance. [] HENT: Normocephalic, atraumatic, Cardiovascular:Heart rate regular rhythm, no murmur [] Lungs & Thorax: Bilateral breath sounds clear to auscultation [] Extremities: Tenderness around the knee, circumferentially with no obvious bruising, deformities, effusions or deformities Neurologic: Alert and oriented X 3, able to sit, stand and walk without issue. No focal deficits noted. [] Psychologic: Affect normal, judgement normal, mood normal. [] EKG EKG [] Radiology/Procedures Radiology/Procedures Imaging with no acute osseous abnormalities [] Heart Score C/O Chest Pain: No Risk Factors: Risk Factors: DM, Current or recent (<one month) smoker, HTN, HLP, family hi story of CAD, obesity. Risk Scores: Risk Factors: DM, Current or recent (<one month) smoker, HTN, HLP, family history of CAD, obesity. Course & Med Decision Making Course & Med Decision Making Patient is a 60-year-old female presents with left knee pain Vital signs not concerning. Physical exam noted above. Given ice pack, and oral pain medication. Yanick wrap applied. Imaging noted above with no acute osseous abnormalities. Discussed all findings with patient. Advised on symptom management at home. Advised to call primary care physician first thing morning to update on ED v isit. Gave return precautions to the ED. Patient grateful, verbalized understanding and agreed with plan of discharge. [] Dragon Disclaimer Dragon Disclaimer This electronic medical record was generated, in whole or in part, using a voice recognition dictation system. Departure Departure: Impression: Primary Impression: Knee pain Disposition: HOME / SELF CARE / HOMELESS Condition: GOOD Referrals: ADAM WELLS (PCP) Patient Instructions: Knee Pain, Knee Wraps (Elastic Bandage) and RICE Additional Instructions: Thank you for coming into the emergency department tonight and allowing us to take care of you. Please read all the attached information above very carefully to go back over what we discussed. As discussed your imaging did not show any broken bones. You can begin a Tylenol, ibuprofen and ice regimen as needed. Please call your primary care physician first thing in the morning to update on your ED visit and set up a follow-up appointment this week and discuss pain management versus MRI. Please come back to the emergency department with new or concerning symptoms as discussed. MARSHAL MORES MD Nov 10, 2020 23:35
[2020-11-10] MEDS ORDERED: IBUPROFEN 600 MG TABLET. PO ONE (23:45)
[2020-11-10] MEDS ORDERED: HYDROcodone/APAP 5/325MG 1 TAB TABLET PO ONE (23:45)
--- NOTE | 2020-11-10 23:56 | RAD ---
Examination: 3 views of the left knee HISTORY: History of left knee pain COMPARISON: None available FINDINGS: The alignment of the knee joint grossly appears unremarkable. Mild joint space loss identified in the medial, lateral, patellofemoral compartments. No acute fracture or dislocation identified IMPRESSION: Mild tricompartmental degenerative changes. Electronically signed by: Ricky Navarrete MD (11/10/2020 11:54 PM) [id number]
[2020-11-11] MEDS ORDERED: HYDROcodone/APAP 5/325MG 1 TAB TABLET PO ONE (00:30)
== END 2020-11-11 00:35 | disposition home or self-care (01) ==
LOC: ER 23:13
DX: M25.562 Pain in left knee (principal); Z87.440 Personal history of urinary (tract) infections; Z98.890 Other specified postprocedural states; Z88.1 Allergy status to other antibiotic agents; Z91.018 Allergy to other foods
CPT/HCPCS: 73562; 99283; 99284

== ENCOUNTER 2021-07-27 11:15 | Emergency (ER) | payer OTHER ==
[~2021-07-27] VITALS: Ht 157.5 cm; Wt 86.0 kg
[~2021-07-27 11:15] MED LIST changes: -CYCL-331 PO; +CYCL10TA19 PO
--- NOTE | 2021-07-27 11:30 | PHYS DOC ---
Past History Past Medical History: UTI Additional Past Medical Histor: Back pain Past Surgical History: Additional Past Surgical Histo: DENTAL Smoking: Non-smoker Alcohol Use: Rarely Drug Use: None Adult General Chief Complaint Chief Complaint: CHEST PAIN HPI HPI Patient is a 61-year-old female who endorses no medical problems who presents to the emergency department from working at [employer] with a chief complaint of chest pain. States it started about 8 AM this morning while she was working, sharp in nature, centralized with no radiation. States it was relatively constant but is getting better now and is almost gone. States she is never had anything like this before. Denies any recent traumas or travels, illnesses, fevers, shortness of breath, abdominal pain, nausea, vomiting, diarrhea. Denies any dysuria, hematuria or blood in the stool. Denies any alcohol or drug use. Denies any tobacco use. Denies any recent dyspnea on exertion, orthopnea, PND or edema. Review of Systems Review of Systems Review of systems otherwise unremarkable except noted in HPI Allergies Allergies Allergies Coded Allergies Type Severity Reaction Last Updated Verified tomato Allergy Unknown 04/07/20 Yes levofloxacin Adverse Reaction Mild Itching, flushed & hot 04/07/20 Yes Physical Exam Physical Exam Constitutional: Well developed, well nourished, no acute distress, non-toxic appearance. [] HENT: Normocephalic, atraumatic, bilateral external ears normal, oropharynx moist, no oral exudates, nose normal. [] Eyes: conjunctiva normal, no discharge. [] Neck: Normal range of motion, no tenderness, supple, no stridor. [] Cardiovascular:Heart rate regular rhythm, no murmur [] Lungs & Thorax:No respiratory distress, bilateral breath sounds clear to auscultation [] Abdomen: soft, no tenderness, no masses, no pulsatile masses. [] Skin: Warm, dry, no erythema, no rash. [] Back: no CVA tenderness. [] Extremities: No tenderness, no cyanosis, no clubbing, ROM intact, no edema. [] Neurologic: Alert and oriented X 3, normal motor function, normal sensory function, no focal deficits noted. [] Psychologic: Affect normal, judgement normal, mood normal. [] EKG EKG [] Radiology/Procedures Radiology/Procedures [] Heart Score C/O Chest Pain: Yes HEART Score for Chest Pain: HEART Score for Chest Pain Response (Comments) Value History Slighlty/Non-Suspicious 0 ECG Normal 0 Age >45 - < 65 1 Risk Factors 1 or 2 Risk Factors 1 Troponin < Normal Limit 0 Total 2 Risk Factors: Risk Factors: DM, Current or recent (<one month) smoker, HTN, HLP, family history of CAD, obesity. Risk Scores: Risk Factors: DM, Current or recent (<one month) smoker, HTN, HLP, family history of CAD, obesity. Course & Med Decision Making Course & Med Decision Making Patient is a 61-year-old female who presents with a chief complaint of sharp chest pain that is been going on about 4 hours Vital signs not concerning. Physical exam noted above. Given aspirin and nitro in route via EMS. EKG with a rate of 56, QRS of 80, QTc 396, no STEMI. Troponin normal. Symptoms resolved in the ED and patient feeling better asking to go home Laboratory analysis not concerning. Discussed all findings with patient. Advised to keep her appointment with her primary care physician later this afternoon for follow-up Gave return precautions to the ED. Patient grateful, verbalized understanding and agreed with plan of discharge. [] Dragon Disclaimer Dragon Disclaimer This electronic medical record was generated, in whole or in part, using a voice recognition dictation system. Departure Departure: Impression: Primary Impression: Chest pain Disposition: 01 HOME / SELF CARE / HOMELESS Condition: STABLE Referrals: ADAM WELLS (PCP) Patient Instructions: Chest Pain (Nonspecific) Additional Instructions: Thank you for coming into the emergency department tonight allowing us to take care of you. Please read the attached information carefully go over things we discussed. As we discussed, your work-up here in the emergency department today was reassuring however it is like a snapshot showing what is going on right now which does not appear emergent but that does not mean that there is not something going on that needs to be followed and reevaluated. Please follow your primary care physician offices recommendations and call them as soon as you get home and set up an appointment for today or tomorrow for reevaluation. Please come back to the emergency department immediately with new or concerning symptoms as discussed. MARSHAL MORSE MD Jul 27, 2021 11:30
[2021-07-27 11:49] VITALS: BP 151/76
[2021-07-27 12:01] LABS: BASO % 1 % (0-3); EOS # 0.1 x10^3/uL (0.0-0.7); EOS % 1 % (0-3); HEMATOCRIT 42.1 % (36.0-47.0); HEMOGLOBIN 14.4 g/dL (12.0-15.5); LYMPH # 2.2 x10^3/uL (1.0-4.8); LYMPH % 34 % (24-48); MEAN CORPUSCULAR HEMOGLOBIN 30 pg (25-35); MEAN CORPUSCULAR HGB CONC 34 g/dL (31-37); MEAN CORPUSCULAR VOLUME 88 fL (79-100); MONO # 0.3 x10^3/uL (0.0-1.1); MONO % 6 % (0-9); NEUT # 3.6 x10^3uL (1.8-7.7); NEUT % 58 % (31-73); PLATELET COUNT 248 x10^3/uL (140-400); RED BLOOD COUNT 4.81 x10^6/uL (3.50-5.40); RED CELL DISTRIBUTION WIDTH 13.3 % (11.5-14.5); WHITE BLOOD COUNT 6.2 x10^3/uL (4.0-11.0)
[2021-07-27 12:14] LABS: CALCIUM 9.4 mg/dL (8.5-10.1); CREATININE 0.7 mg/dL (0.6-1.0); GFR 85.6
--- NOTE | 2021-07-27 12:15 | RAD ---
XR CHEST 1V 07/27/2021 11:31 AM INDICATION: Chest pain COMPARISON: 04/05/2017 TECHNIQUE: Portable frontal view of the chest is provided. FINDINGS: The cardiomediastinal silhouette is within normal limits. Lungs are clear. There are no significant pleural effusions. There is no pulmonary vascular congestion. No pneumothora x. No suspicious osseous abnormality. IMPRESSION: There is no acute cardiopulmonary process. Electronically signed by: Nati Cooney MD (07/27/2021 12:12 PM) [id number]
[2021-07-27 12:22] LABS: ALBUMIN 3.9 g/dL (3.4-5.0); ALBUMIN/GLOBULIN RATIO 1.3 (1.0-1.7); TOTAL BILIRUBIN 0.5 mg/dL (0.2-1.0); TOTAL PROTEIN 6.8 g/dL (6.4-8.2)
[2021-07-27 12:38] LABS: BACTERIA,URINE FEW /HPF (0-FEW); CLARITY,URINE HAZY; COLOR,URINE YELLOW; GLUCOSE,URINE NEG (NEG); NITRITE,URINE NEG (NEG); SQUAMOUS EPITHELIAL CELL,UR MANY /LPF; UROBILINOGEN,URINE 0.2 mg/dL (0.2 mg/dL)
--- NOTE | 2021-07-27 19:40 | EKG ---
[address] [address] Test Date: 2021-07-27 Test Time: 11:31:27 Pat Name: LLOYD PITTS Department: Room: Gender: F Interpretive [employer]ist: : [id number] Requested By: MARSHAL MORSE Order Number: [id number] Reading MD: Measurements Intervals [place] Rate: 56 P: 33 NC: 162 QRS: -7 QRSD: 80 T: 34 QT: 408 QTc: 396 Interpretive Statements SINUS RHYTHM LEFTWARD AXIS QRS(T) CONTOUR ABNORMALITY CONSIDER ANTEROLATERAL MYOCARDIAL DAMAGE CONSISTENT WITH INFERIOR INFARCT PROBABLY OLD ABNORMAL ECG RI6.01 No previous ECG available for comparison
== END 2021-07-27 12:58 | disposition home or self-care (01) ==
LOC: ER 11:15
DX: R07.89 Other chest pain (principal); Z87.440 Personal history of urinary (tract) infections; Z88.1 Allergy status to other antibiotic agents; Z91.018 Allergy to other foods
CPT/HCPCS: 36415; 71045; 80053; 81001; 84484; 85025; 85610; 85730; 87086; 93005; 99285